=== PATIENT | female | born 1990 | race Caucasian/White ===

== ENCOUNTER 2018-09-14 19:26 | Emergency (ER) | payer BC ==
[~2018-09-14] VITALS: Ht 162.6 cm; Wt 56.7 kg
[2018-09-14] MEDS ORDERED: NORCO 5-325 TA1 EACH PO (22:14)
== END 2018-09-14 22:35 | disposition home or self-care (01) ==
LOC: ED 19:26
PROC: 0RSJXZZ Reposition Right Shoulder Joint, External Approach (ICD-10-PCS; principal; 2018-09-14)
DX: S43.014A Anterior dislocation of right humerus, initial encounter (principal); W01.0XXA Fall on same level from slipping, tripping and stumbling without subsequent striking against object, initial encounter
CPT/HCPCS: 23650; 73030; 99283-25; J2405; J2704; J3010; J7030